=== PATIENT | female | born 1995 | race Caucasian/White ===

== ENCOUNTER 2017-04-27 16:23 | Emergency (ER) | payer MEDICAID, OTHER | END 2017-04-27 18:16 | disposition home or self-care (01) | LOC: E/R 16:23 | DX: J02.0 Streptococcal pharyngitis (principal) | CPT/HCPCS: 99284; Z7502 ==

== ENCOUNTER 2017-11-18 20:14 | Emergency (ER) | payer MEDICAID | END 2017-11-18 23:35 | disposition home or self-care (01) | LOC: FTE 20:14 | DX: J06.9 Acute upper respiratory infection, unspecified (principal) | CPT/HCPCS: 99283; Z7502 ==